=== PATIENT | male | born 1930 | race Caucasian/White ===

== ENCOUNTER 2018-03-16 03:52 | Inpatient (IN) | payer MEDICARE, MEDICAID ==
--- NOTE | 2018-03-16 04:14 | ED Physician Chart ---
ED Chief Complaint/HPI - Patient Information Date Seen:: 03/16/18 Time Seen:: 04:10 Chief Complaint:: increased confusion History of Present Illness:: Patient has been exhibiting increasing confusion. He is normally oriented 1 only but the staff at his facility feels like he has been more confused than normal. According to the staff there he had been losing weight lately but they weren't sure how much. Allergies:: Allergies Allergy/AdvReac Type Severity Reaction Status Date / Time Penicillins Allergy Verified 03/16/18 04:03 Historian:: Patient, EMS Review:: Transfer documents Reviewed ED Review of Systems - Review of Systems General/Constitutional: No fever, No chills, Weakness Skin: No skin lesions Head: No headache Eyes: No loss of vision ENT: No earache Neck: No neck pain Cardio Vascular: No chest pain Pulmonary: No SOB GI: No nausea, No vomiting, No diarrhea G/U: No dysuria Musculoskeletal: No bone or joint pain Endocrine: No polyuria Psychiatric: Prior psych history Hematopoietic: No bruising Allergic/Immuno: Urticaria, No urticaria ED Past Medical History - Past Medical History Past Medical History: Other (Alzheimer; benign prostatic hypertrophy; hyperlipidemia; hypertension; COPD; tachycardia) Family History: Other (unavailable) Social History: Non Smoker, Care Facility Psychiatricy History: Dementia Medication: Reviewed Family Medical History - Family Member Mother History Unknown: Yes ED Physical Exam - Physical Examination General/Constitutional: Awake Other Gen/Cons comments:: Confused; does not know the year; Head: Atraumatic Eyes: Lids, conjuctiva normal, PERRL Skin: Nl inspection, No rash ENMT: TM canals nl Neck: No nuchal rigidity Respiratory: Nl effort/Exclusion, Clear to Auscultation Other Cardio Vascular comments:: Heart sounds were inaudible GI: No tenderness/rebounding/guarding : No CVA tenderness Extremities: Normal digits & nails Neuro/Psych: No focal deficits ED Labs/Radiology/EKG Results - Lab Results Results: Abnormal Lab Results 03/16/18 03/16/18 04:40 04:40 WBC 6.3 RBC 4.46 Hgb 12.0 Hct 35.7 L MCV 80.0 MCH 26.8 L MCHC Differential 33.5 RDW 14.1 Plt Count 400 MPV 8.1 Neutrophils % 54.8 Lymphocytes % 24.5 Monocytes % 11.2 H Eosinophils % 8.5 H Basophils % 1.0 Sodium 138 Potassium 3.7 Chloride 106 Carbon Dioxide 25.9 Anion Gap 9.8 BUN 22 Creatinine 0.7 Est GFR ( Amer) TNP Est GFR (Non-Af Amer) TNP BUN/Creatinine Ratio 31.4 Glucose 86 Calcium 9.1 Total Bilirubin 0.4 AST 14 ALT 10 Alkaline Phosphatase 89 Total Protein 6.2 Albumin 3.2 L Globulin 3.0 Albumin/Globulin Ratio 1.1 - EKG Interpretations Rate & Rhythm: normal sinus rhythm with a rate of 80 [place]: normal axis Comments:: First-degree AV block; 1 PVC ED Septic Shock - . Is Septic Shock (SBP<90, OR Lactate>4 mmol\L) present?: No ED Reassessment (Disposition) - Reassessment Reassessment Condition:: Unchanged - Diagnosis Diagnosis:: Also mental status - Patient Disposition Admitted to:: Telemetry Spoke to:: Hi Clarke Admitting Medical Physician:: Hi Clarke Condition at Disposition:: Stable, Unchanged
[2018-03-16 05:06] LABS: ALB/GLOB RATIO 1.1 (1.0-1.8); ALBUMIN 3.2 gm/dL (4.2-5.5); ALKALINE PHOSPHATASE 89 U/L (34-104); ANION GAP 9.8 (7.0-16.0); BILIRUBIN,TOTAL 0.4 mg/dL (0.3-1.0); BUN - UREA NITROGEN 22 mg/dL (7-25); CALCIUM SERUM 9.1 mg/dL (8.6-10.3); CARBON DIOXIDE 25.9 mEq/L (21.0-31.0); CHLORIDE 106 mEq/L (98-107); CREATININE - SERUM 0.7 mg/dL (0.7-1.3); GLUCOSE 86 mg/dL (70-105); POTASSIUM SERUM 3.7 mEq/L (3.5-5.1); SGOT 14 U/L (13-39); SGPT/ALT 10 U/L (7-52); SODIUM SERUM 138 mEq/L (136-145); TOTAL PROTEIN,SERUM 6.2 gm/dL (6.0-8.3)
[2018-03-16 05:08] LABS: % EOSINOPHILS 8.5 % (0.0-5.0); % LYMPHOCYTES 24.5 % (20.0-50.0); % MONOCYTES 11.2 % (2.0-10.0); % NEUTROPHILS 54.8 % (40.0-80.0); BASOPHILE ABSOLUTE 0.1 Th/cumm (0-0.2); EOSINOPHILE ABSOLUTE 0.5 Th/cmm (0.1-0.4); HEMATOCRIT 35.7 % (41.0-60); LYMPHOCYTE ABSOLUTE 1.5 Th/cmm (1.5-3.0); MEAN CORPUSCULAR HEMOGLOBIN 26.8 pg (27.0-31.0); MEAN CORPUSCULAR HGB CONC 33.5 pg (28.0-36.0); MEAN PLATELET VOLUME 8.1 fl; MONOCYTE ABSOLUTE 0.7 Th/cmm (0.3-1.0); NEUTROPHILE ABSOLUTE 3.5 Th/cmm (1.8-8.0); PLATELET COUNT 400 Th/cmm (150-400); RED BLOOD COUNT 4.46 Mil/cmm (3.80-5.80); RED CELL DISTRIBUTION WIDTH 14.1 % (11.5-20.0); WHITE BLOOD COUNT 6.3 Th/cmm (4.8-10.8)
[2018-03-16] MEDS ORDERED: HYDROmorphone 1 mg/mL 1mL Syr IVP PRN (06:51)
[2018-03-16] MEDS ORDERED: Non-Formulary Item 1 EA (Cranberry Fruit Concentrate [Cranberry] 450 MG) PO SCH (09:00)
--- NOTE | 2018-03-16 09:38 | Diagnostic Imaging Report ---
Portable chest x-ray HISTORY: Shortness of breath The heart size is normal. Atherosclerotic calcination seen in the aorta. Pleural thickening and parenchymal changes noted within the right upper lobe. Volume loss seen. Findings appear chronic and most likely related to old inflammatory disease. IMPRESSION: 1. 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 2. No acute abnormalities 3. Atherosclerotic vascular changes
[2018-03-16] MEDS: Multivitamin Tab PO SCH (11:26)
[2018-03-16] MEDS ORDERED: VTE Chemical Prophylaxis Screen/Admission MC PRN (13:05)
[2018-03-16] MEDS: Albuterol/Ipratropium Neb 3 ML AERS HHN SCH ×2 (14:29→23:35)
[2018-03-16] MEDS ORDERED: Magnesium Hydroxide (MOM) 30 mL UDC PO SCH (21:00)
--- NOTE | 2018-03-17 00:27 | History & Physical ---
ADMIT DATE: 03/16/2018 CHIEF COMPLAINT: Confusion and weakness. HISTORY OF PRESENT ILLNESS: The patient is an 88-year-old male admitted from the Emergency Room due to altered level of consciousness and failure to thrive as well as severe weakness. The patient's vital signs are basically stable. Lab wick, not much derangement appreciated except hypoalbuminemia. Chest x-ray is basically unremarkable as well. The patient is very weak and thin. PAST MEDICAL HISTORY: Degenerative joint disease, COPD, hypertension, constipation, Alzheimer's disease, gastroesophageal reflux disease, and BPH. PAST SURGICAL HISTORY: Denied. PAST SURGICAL HISTORY: Denies significant past surgical history. MEDICATIONS: See medication reconciliation. ALLERGIES: PENICILLIN. FAMILY HISTORY: Noncontributory. SOCIAL HISTORY: Denies tobacco, alcohol, or IV drug use. REVIEW OF SYSTEMS: As per HPI. PHYSICAL EXAMINATION: GENERAL: Well-developed female in no acute distress. SKIN: Warm and dry. VITAL SIGNS: Basically stable. HEENT: Normocephalic, atraumatic. Pupils equal, round, react to light and accommodation. CHEST: Symmetrical. LUNGS: Clear to auscultation bilaterally. HEART: Normal sinus rhythm. S1, S2. ABDOMEN: Benign, soft, nontender. EXTREMITIES: No clubbing, cyanosis, or edema, bilaterally 2+. NEUROLOGIC: Unremarkable. LABORATORY DATA: Reviewed. ASSESSMENT AND PLAN: 1. Altered level of consciousness: We will observe for now. We will also order UA, urine C and S. 2. Failure to thrive: Workup in progress. 3. Weakness: Fall precaution and physical therapy. 4. Chronic obstructive pulmonary disease: RT protocol. 5. History of hypertension, controlled. JOB# [id number]
[2018-03-17] MEDS: Albuterol/Ipratropium Neb 3 ML AERS HHN SCH (06:51)
[2018-03-17] MEDS: Multivitamin Tab PO SCH (08:51)
--- NOTE | 2018-03-25 18:20 | Discharge Summary ---
DATE OF DISCHARGE: 03/17/2018 FINAL DIAGNOSES: 1. Altered level of consciousness, resolved. 2. Failure to thrive, improved. 3. Weakness, stabilized. 4. Chronic obstructive pulmonary disease. HOSPITAL COURSE: The patient is an 88-year-old male admitted due to altered level of consciousness, weakness, failure to thrive, and COPD. Upon further assessment after admission, the patient's condition improved. He is less confused and weakness also improved. The patient agreed to be discharged home. DISCHARGE CONDITION: Stable. DISPOSITION: The patient to home. DISCHARGE MEDICATIONS: Continue medication from home. DIET: Cardiac, soft diet. ACTIVITY: Up as tolerated with physical therapy. FOLLOWUP: One week. [facility]# [id number]
== END 2018-03-17 13:50 | disposition home or self-care (01) | DRG 641 ==
LOC: ER 03:52 → TELE 06:44
PROVIDERS: ADMIT Internal Medicine; ATTEND Internal Medicine
DX: R62.7 Adult failure to thrive (principal); R53.1 Weakness; R41.82 Altered mental status, unspecified; G30.9 Alzheimer's disease, unspecified; E78.5 Hyperlipidemia, unspecified; Z66 Do not resuscitate; I10 Essential (primary) hypertension; J44.9 Chronic obstructive pulmonary disease, unspecified; F02.80 Dementia in other diseases classified elsewhere, unspecified severity, without behavioral disturbance, psychotic disturbance, mood disturbance, and anxiety; M19.90 Unspecified osteoarthritis, unspecified site; K21.9 Gastro-esophageal reflux disease without esophagitis; N40.0 Benign prostatic hyperplasia without lower urinary tract symptoms
CPT/HCPCS: 36415-UA; 71045-TC; 80053-TC; 85025-TC; 93005; 94640; 94760; J1644; Z7610